=== PATIENT | male | born 1990 | race Two or more races ===

== ENCOUNTER 2019-01-09 01:41 | Emergency (ER) | payer BC, OTHER ==
[~2019-01-09] VITALS: Ht 165.1 cm; Wt 90.7 kg
[2019-01-09 02:00] VITALS: BP 121/85
[2019-01-09] MEDS ORDERED: cefTRIAXone SOD 1,000 MG VL IM ONE (03:00)
== END 2019-01-09 03:18 | disposition home or self-care (01) ==
LOC: ER 01:43
DX: J03.80 Acute tonsillitis due to other specified organisms (principal); B96.89 Other specified bacterial agents as the cause of diseases classified elsewhere; J02.9 Acute pharyngitis, unspecified
CPT/HCPCS: 96372; 99283; J0696

== ENCOUNTER 2021-03-31 00:12 | Emergency (ER) | payer BC ==
[~2021-03-31] VITALS: Ht 165.1 cm; Wt 90.7 kg
[2021-03-31 03:12] VITALS: BP 117/84
== END 2021-03-31 03:23 | disposition home or self-care (01) ==
LOC: EDBD 00:12 → ER 00:19
DX: R55 Syncope and collapse (principal)
CPT/HCPCS: 93005